=== PATIENT | male | born 1970 | race Caucasian/White ===

== ENCOUNTER 2018-04-13 09:31 | Emergency (ER) | payer MEDICARE ==
[~2018-04-13] VITALS: Ht 177.8 cm; Wt 75.3 kg
[~2018-04-13 09:31] MED LIST: CARI350T PO; DOXY100C2 PO; FENT1PAT19 TP; METH10TA2 PO; OMEP20CA5 PO; RIVA10TA PO
[2018-04-13] MEDS ORDERED: METHADONE 5 MG TABLET. PO STA (10:11)
--- NOTE | 2018-04-13 10:18 | PHYS DOC ---
Past History Past Medical History: DVT, Other Past Surgical History: Other Alcohol Use: None Drug Use: Methadone Adult General Chief Complaint Chief Complaint: BACK PAIN OR INJURY HPI HPI 48-year-old male presents with chronic back, hip, neck pain. The patient is on chronic pain medication including methadone and hydrocodone tens. Patient admits that he became flushed it with his latest pain management PA for decreasing his methadone too quickly. He was then discharged from the clinic. Patient states that he has called several physicians and no one can see him. He is attempting to get insurance at this time. He is out of his methadone for the last several days. He states the pain is quite severe but denies any new exacerbating symptoms or trauma. Review of Systems Review of Systems Constitutional: Denies fever or chills [] Eyes: Denies change in visual acuity, redness, or eye pain [] HENT: Denies nasal congestion or sore throat [] Respiratory: Denies cough or shortness of breath [] Cardiovascular: No additional information not addressed in HPI [] GI: Denies abdominal pain, nausea, vomiting, bloody stools or diarrhea [] : Denies dysuria or hematuria [] Musculoskeletal: Back pain, right hip pain, neck pain[] Integument: Denies rash or skin lesions [] Neurologic: Denies headache, focal weakness or sensory changes [] Endocrine: Denies polyuria or polydipsia [] All other systems were reviewed and found to be within normal limits, except as documented in this note. Allergies Allergies Allergies Coded Allergies Type Severity Reaction Last Updated Verified codeine Allergy Intermediate 10/13/14 Yes ketorolac Allergy Intermediate 10/13/14 Yes morphine Allergy Intermediate 10/13/14 Yes pentazocine Allergy Intermediate 10/13/14 Yes Physical Exam Physical Exam Constitutional: Well developed, well nourished, no acute distress, non-toxic appearance. [] HENT: Normocephalic, atraumatic, bilateral external ears normal, oropharynx moist, no oral exudates, nose normal. [] Eyes: PERRLA, EOMI, conjunctiva normal, no discharge. [] Neck: Normal range of motion, no tenderness, supple, no stridor. [] Cardiovascular:Heart rate regular rhythm, no murmur [] Lungs & Thorax: Bilateral breath sounds clear to auscultation [] Abdomen: Bowel sounds normal, soft, no tenderness, no masses, no pulsatile masses. [] Skin: Warm, dry, no erythema, no rash. [] Back: Cervical tenderness, lumbar tenderness, flattening of the lumbar lordosis. [] Extremities: No tenderness, no cyanosis, no clubbing, ROM intact, no edema. [] Neurologic: Alert and oriented X 3, normal motor function, normal sensory function, no focal deficits noted. [] Psychologic: Affect normal, judgement normal, mood normal. [] Current Patient Data Vital Signs Vital Signs Date Time Temp Pulse Resp B/P (MAP) Pulse Ox O2 Delivery O2 Flow Rate FiO2 04/13/18 09:31 97.9 113 22 100 Room Air EKG EKG [] Radiology/Procedures Radiology/Procedures [] Course & Med Decision Making Course & Med Decision Making Pertinent Labs and Imaging studies reviewed. (See chart for details) Review of the drug database shows the patient is regularly prescribed methadone and hydrocodone 10/325. Last filled prescription was March 26. This was a 14 day supply that time. This does show the patient will be out of this medication at this time. He did show me an empty bottle. I told him that I cannot write a prescription for these medications due to him being on chronic pain management from some other physician. I will give him one 10 mg tablet of methadone in the ER. He will have to find a new physician or return to his previous and work something out. [] Dragon Disclaimer Dragon Disclaimer This electronic medical record was generated, in whole or in part, using a voice recognition dictation system. Departure Departure: Referrals: PCP,NIEVES (PCP) JOHNNY PONCE DO Apr 13, 2018 10:17
[2018-04-13 10:37] VITALS: BP 138/92
== END 2018-04-13 11:05 | disposition home or self-care (01) ==
LOC: ER 09:31
DX: G89.29 Other chronic pain (principal); M54.5 Low back pain; M54.2 Cervicalgia; M25.551 Pain in right hip; M40.56 Lordosis, unspecified, lumbar region; Z86.718 Personal history of other venous thrombosis and embolism; Z88.5 Allergy status to narcotic agent; Z88.8 Allergy status to other drugs, medicaments and biological substances
CPT/HCPCS: 99284

== ENCOUNTER 2018-05-06 00:18 | Emergency (ER) | payer MEDICARE ==
[~2018-05-06] VITALS: Ht 177.8 cm; Wt 81.6 kg
--- NOTE | 2018-05-06 00:21 | ED.ADGEN ---
Past History Past Medical History: Arthritis, Depression, DVT, Other Past Surgical History: Lumbar Laminectomy, Other Alcohol Use: None Drug Use: Methadone Adult General Chief Complaint Chief Complaint ".. I got chronic back pain.. it down there where .. I had surgery... I seen Dr. Burgos.. and I am to see Dr. Louis at pain center...but I am out of meds... " HPI HPI Patient is a 48 year old male who presents with chronic back pain. Pt. see previous onf 04/13 for same complaint. Currently of Methadone. Pt. currently following with Dr. Burgos and has scheduled apt[facility]. Pt. denies any fever or chills. Patient denies any problems with defecation or urination. Patient is ambulatory. Patient pain is located paraspinal in area of previous lumbar surgery. Review of Systems Review of Systems Constitutional: Denies fever or chills [] Eyes: Denies change in visual acuity, redness, or eye pain [] HENT: Denies nasal congestion or sore throat [] Respiratory: Denies cough or shortness of breath [] Cardiovascular: No additional information not addressed in HPI [] GI: Denies abdominal pain, nausea, vomiting, bloody stools or diarrhea [] : Denies dysuria or hematuria [] Musculoskeletal: Complains of back pain Integument: Denies rash or skin lesions [] Neurologic: Denies headache, focal weakness or sensory changes [] Endocrine: Denies polyuria or polydipsia [] All other systems were reviewed and found to be within normal limits, except as documented in this note. Family History Family History Noncontributory Current Medications Current Medications Current Medications Medications (Trade) Dose Ordered Sig/Sonya Start Time Stop Time Status Last Admin Dose Admin Methadone HCl (Dolophine) 10 mg 1X ONCE 05/06/18 01:00 05/06/18 01:01 DC 05/06/18 01:09 10 MG Allergies Allergies Allergies Coded Allergies Type Severity Reaction Last Updated Verified codeine Allergy Intermediate 10/13/14 Yes ketorolac Allergy Intermediate 10/13/14 Yes morphine Allergy Intermediate 10/13/14 Yes pentazocine Allergy Intermediate 10/13/14 Yes Physical Exam Physical Exam Constitutional: Moderately acute distress, non-toxic appearance. [] HENT: Normocephalic, atraumatic, bilateral external ears normal, oropharynx moist, no oral exudates, nose normal. [] Eyes: PERRLA, EOMI, conjunctiva normal, no discharge. [] Neck: Normal range of motion, no tenderness, supple, no stridor. [] Cardiovascular:Heart rate regular rhythm, no murmur [] Lungs & Thorax: Bilateral breath sounds equal apex with scattered wheezes on auscultation [] Abdomen: Bowel sounds normal, soft, no tenderness, no masses, no pulsatile masses. [] Mild distention Skin: Warm, dry, no erythema, no rash. [] Back: Lumbar surgery scar and area of tenderness, no CVA tenderness. [] Extremities: No tenderness, no cyanosis, no clubbing, ROM intact, no edema. [] DTRs +2 patella. Is ambulatory Neurologic: Alert and oriented X 3, normal motor function, normal sensory function, no focal deficits noted. [] Psychologic: Affect anxious judgement normal, mood normal. [] Current Patient Data Vital Signs Vital Signs Date Time Temp Pulse Resp B/P (MAP) Pulse Ox O2 Delivery O2 Flow Rate FiO2 05/06/18 01:09 20 96 Room Air 05/06/18 00:26 96.6 100 EKG EKG [] Radiology/Procedures Radiology/Procedures [] Course & Med Decision Making Course & Med Decision Making Pertinent Labs and Imaging studies reviewed. (See chart for details). Patient encouraged to keep follow-up with Dr. Ulrich and Dr. Cueva or pain center. We given 1 dose of methadone tonight at 10 mg. [] Final Impression Final Impression 1. Chronic back pain[] Dragon Disclaimer Dragon Disclaimer This electronic medical record was generated, in whole or in part, using a voice recognition dictation system. SCOTT CERVANTES MD May 06, 2018 00:21
[2018-05-06 00:26] VITALS: BP 148/88
[2018-05-06] MEDS ORDERED: METHADONE 5 MG TABLET. PO ONE (01:00)
== END 2018-05-06 01:14 | disposition home or self-care (01) ==
LOC: ER 00:18
DX: G89.29 Other chronic pain (principal); M54.5 Low back pain; M19.90 Unspecified osteoarthritis, unspecified site; F32.9 Major depressive disorder, single episode, unspecified; Z86.718 Personal history of other venous thrombosis and embolism; Z98.890 Other specified postprocedural states; Z88.5 Allergy status to narcotic agent; Z88.8 Allergy status to other drugs, medicaments and biological substances
CPT/HCPCS: 99282

== ENCOUNTER → 2019-01-23 | Outpatient (CLI) | payer MEDICARE ==
[2019-01-23 09:36] VITALS: BP 137/84
== END | disposition home or self-care (01) ==
LOC: SURG 09:18
PROVIDERS: ATTEND Anesthesiology Pain Medicine
DX: M54.16 Radiculopathy, lumbar region (principal); G89.4 Chronic pain syndrome; I10 Essential (primary) hypertension; J44.9 Chronic obstructive pulmonary disease, unspecified; F98.8 Other specified behavioral and emotional disorders with onset usually occurring in childhood and adolescence; F17.200 Nicotine dependence, unspecified, uncomplicated; Z79.01 Long term (current) use of anticoagulants; Z79.899 Other long term (current) drug therapy; Z86.718 Personal history of other venous thrombosis and embolism; Z72.89 Other problems related to lifestyle
CPT/HCPCS: 99214

== ENCOUNTER 2019-07-17 14:26 | Emergency (ER) | payer MEDICARE ==
[~2019-07-17] VITALS: Ht 177.8 cm; Wt 80.0 kg
--- NOTE | 2019-07-17 14:55 | PHYS DOC ---
Past History Past Medical History: Arthritis, Depression, DVT, Other Additional Past Medical Histor: chronic back pain Past Surgical History: Lumbar Laminectomy, Other Alcohol Use: None Drug Use: None Adult General Chief Complaint Chief Complaint: LOWER EXT PAIN HPI HPI Patient is a 49-year-old male who presents to the emergency department for evaluation. He states for the past week, he has had increasing pain in his calves bilaterally, and he has a history of a DVT. He denies any increased swelling of his legs, or change in the appearance of the skin of his legs, which showed changes of chronic venous stasis. He has not had any fevers or chills and denies any chest pain or shortness of breath. There are no alleviating or exacerbating factors to his symptoms otherwise. The patient has a past history of chronic back pain, and had been seen pain management doctor for opiate treatment, but was released from the practice of his primary pain management physician about 3 months ago, and states she has not had any opiate medication since then. The patient states a few days ago he fell, and exacerbated his chronic back pain. Denies numbness incontinence or saddle anesthesia. Review of Systems Review of Systems Constitutional: Denies fever or chills [] Eyes: Denies change in visual acuity, redness, or eye pain [] HENT: Denies nasal congestion or sore throat [] Respiratory: Denies cough or shortness of breath [] Cardiovascular: The patient denies any shortness of breath, chest pain, palpitations, or orthopnea. the patient denies pleuritic pain[] GI: Denies abdominal pain, nausea, vomiting, bloody stools or diarrhea [] : Denies dysuria or hematuria [] Musculoskeletal: Denies neck pain or joint pain [] Integument: Denies rash or skin lesions [] Neurologic: Denies headache, focal weakness or sensory changes [] Endocrine: Denies polyuria or polydipsia [] All other systems were reviewed and found to be within normal limits, except as documented in this note. Allergies Allergies Allergies Coded Allergies Type Severity Reaction Last Updated Verified codeine Allergy Intermediate 01/23/19 Yes ketorolac Allergy Intermediate 01/23/19 Yes morphine Allergy Intermediate 01/23/19 Yes pentazocine Allergy Intermediate 01/23/19 Yes Physical Exam Physical Exam PHYSICAL EXAM: CONSTITUTIONAL: Well developed, well nourished HEAD: normocephalic, atraumatic EENT: PERRL, EOMI. Conjunctivae normal color, sclerae non-icteric; moist mucous membranes. NECK: Supple, non-tender; no meningismus. LUNGS: Lungs CTA, breathing even and unlabored. Normal air movement. HEART: Regular rate and rhythm, no murmur CHEST: No deformity; non-tender ABDOMEN: The abdomen is soft, and non-tender, no masses or bruits. EXTREM: Normal ROM; no deformity, there is tenderness to palpation to the Is bilaterally, right greater than left, with a palpable cord just distal to the knee, extending chronically. There is some mild surrounding erythema. There are skin changes of venous stasis bilaterally, which are stable per the patient. Distal pulses are strong bilaterally. The remainder the extremities are unremarkable. SKIN: No rash; no diaphoresis NEURO: Alert; normal speech and cognition; CN's grossly intact; strength grossly intact without focal deficit. BACK: No CVA TTP. There is mild diffuse tenderness to palpation of the lumbar spine without any focal bony tenderness to palpation. Current Patient Data Lab Results Laboratory Tests Test 07/17/19 14:54 07/17/19 15:10 White Blood Count 8.8 x10^3/uL Red Blood Count 5.48 x10^6/uL Hemoglobin 16.3 g/dL Hematocrit 49.8 % Mean Corpuscular Volume 91 fL Mean Corpuscular Hemoglobin 30 pg Mean Corpuscular Hemoglobin Concent 33 g/dL Red Cell Distribution Width 14.2 % Platelet Count 336 x10^3/uL Neutrophils (%) (Auto) 62 % Lymphocytes (%) (Auto) 24 % Monocytes (%) (Auto) 11 % Eosinophils (%) (Auto) 3 % Basophils (%) (Auto) 1 % Neutrophils # (Auto) 5.5 x10^3uL Lymphocytes # (Auto) 2.1 x10^3/uL Monocytes # (Auto) 1.0 x10^3/uL Eosinophils # (Auto) 0.2 x10^3/uL Basophils # (Auto) 0.0 x10^3/uL Sodium Level 142 mmol/L Potassium Level 3.7 mmol/L Chloride Level 102 mmol/L Carbon Dioxide Level 28 mmol/L Anion Gap 12 Blood Urea Nitrogen 6 mg/dL Creatinine 1.2 mg/dL Estimated GFR (Cockcroft-Gault) 63.8 Glucose Level 71 mg/dL Calcium Level 9.4 mg/dL Urine Opiates Screen Neg Urine Methadone Screen Neg Urine Barbiturates Neg Urine Phencyclidine Screen Neg Urine Amphetamine/Methamphetamine Neg Urine Benzodiazepines Screen Neg Urine Cocaine Screen Neg Urine Cannabinoids Screen Neg Urine Ethyl Alcohol Neg EKG EKG [] Radiology/Procedures Radiology/Procedures [] Impressions: PROCEDURE: VENOUS LOWER EXT BILATERAL INDICATION: History of deep vein thrombosis with leg pain COMPARISON: October 11, 2014 TECHNIQUE: Grayscale, color and doppler ultrasound images were obtained of the bilateral lower extremity venous vasculature. RIGHT: Common femoral vein is patent. Partial thrombus within the superficial femoral, popliteal veins as well as extension into the calf veins including peroneal and posterior tibial. Suspected thrombus within lesser saphenous vein. Additional superficial thrombus within varicose vein. LEFT: No thrombus identified in the common femoral vein, femoral vein, popliteal vein or visualized calf veins. Thrombus is seen within lesser saphenous vein IMPRESSION: * Deep vein thrombosis is identified on the right. * Thrombus within the lesser saphenous vein on the left. PROCEDURE: LUMBAR SPINE 2-3V Exam: Lumbar spine 3 views INDICATION: Fall, pain TECHNIQUE: Frontal and lateral views lumbar spine with spot magnification view of the lumbosacral junction. Comparisons: None FINDINGS: There is reversal of the normal lumbar lordosis. Compression deformity involving the superior endplate of L1 with less than 25 percent height loss. Mild wedging of the L3 vertebral body is also noted. Posterior lumbar fusion hardware at L4-L5 with bilateral transpedicular screws and interconnecting vertical stabilization rods. Degenerative disc disease greatest at L3-L4. Vascular stent noted overlying the expected area of the left iliac vessels. Likely right renal calculi at the right renal kami measuring 1.9 cm. IMPRESSION: 1. Compression deformity involving the superior endplate of L1 with approximately 25 percent height loss. This is age indeterminate correlate with point tenderness. 2. Mild wedging of the L3 vertebral body which appears to be chronic in appearance with adjacent sclerosis Course & Med Decision Making Course & Med Decision Making Pertinent Labs and Imaging studies reviewed. (See chart for details) 5:00 PM: The patient's condition remains stable at this time. He continues to deny any chest pain or shortness of breath. His heart rate is in the 90s. I discussed test results in detail, the need for close PCP follow-up, use of warm compresses, antibiotics, analgesic medication, the need for reestablishing care with his pain management doctor, and return precautions in detail. 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 He has not had any opiate pain prescription since March. Dragon Disclaimer Estephanie Disclaimer This electronic medical record was generated, in whole or in part, using a voice recognition dictation system. Departure Departure: Impression: Primary Impression: DVT (deep venous thrombosis) Additional Impressions: Superficial vein thrombosis Compression fracture Chronic pain syndrome Disposition: HOME, SELF-CARE Condition: STABLE Referrals: DIGNA CLAYTON MD (PCP) Patient Instructions: Back, Compression Fracture, Chronic Back Pain, Deep Vein Thrombosis, Phlebitis Additional Instructions: Warm compresses to the affected area on your leg may help improve your symptoms. Return to medical care for any new or worsening symptoms, development of increasing pain in your legs, swelling in your legs, difficulty breathing, or any other new, or concerning symptoms. Scripts Cephalexin (KEFLEX) 500 Mg Capsule 500 MG PO QID for - for 7 Days, #28 CAP Prov: YAIMA TRAN MD 07/17/19 Rivaroxaban (XARELTO) 20 Mg Tablet 1 TAB PO DAILY for DVT for 30 Days, #30 TAB 0 Refills with food- Begin taking after completing course of 15 mg BID for 3 weeks Prov: YAIMA TRAN MD 07/17/19 Rivaroxaban (XARELTO) 15 Mg Tablet 1 TAB PO BID for - for 21 Days, #42 TAB 0 Refills Prov: YAIMA TRAN MD 07/17/19 Oxycodone HCl/Acetaminophen (Percocet 5-325 mg Tablet) 1 Each Tablet 1 TAB PO Q6HRS PRN for PAIN MDD 3 Tablet(s), #20 TAB 0 Refills Prov: YAIMA TRAN MD 07/17/19 Problem Qualifiers YAIMA TRAN MD Jul 17, 2019 14:55
[2019-07-17 15:14] LABS: BASO % 1 % (0-3); EOS # 0.2 x10^3/uL (0.0-0.7); EOS % 3 % (0-3); HEMATOCRIT 49.8 % (39.0-53.0); HEMOGLOBIN 16.3 g/dL (13.0-17.5); LYMPH # 2.1 x10^3/uL (1.0-4.8); LYMPH % 24 % (24-48); MEAN CORPUSCULAR HEMOGLOBIN 30 pg (25-35); MEAN CORPUSCULAR HGB CONC 33 g/dL (31-37); MEAN CORPUSCULAR VOLUME 91 fL (79-100); MONO % 11 % (0-9); NEUT # 5.5 x10^3uL (1.8-7.7); NEUT % 62 % (31-73); PLATELET COUNT 336 x10^3/uL (140-400); RED BLOOD COUNT 5.48 x10^6/uL (4.30-5.70); RED CELL DISTRIBUTION WIDTH 14.2 % (11.5-14.5); WHITE BLOOD COUNT 8.8 x10^3/uL (4.0-11.0)
[2019-07-17 15:17] LABS: CALCIUM 9.4 mg/dL (8.5-10.1); CREATININE 1.2 mg/dL (0.7-1.3); GFR 63.8; POTASSIUM 3.7 mmol/L (3.5-5.1)
[2019-07-17 15:52] LABS: AMPHETAMINE/METHAMPHETAMINE NEG (NEG); BARBITURATES NEG (NEG); BENZODIAZEPINES NEG (NEG); CANNABINOIDS NEG (NEG); COCAINE NEG (NEG); METHADONE NEG (NEG); OPIATES NEG (NEG); PHENCYCLIDINE NEG (NEG)
--- NOTE | 2019-07-17 16:39 | RAD ---
INDICATION: History of deep vein thrombosis with leg pain COMPARISON: October 11, 2014 TECHNIQUE: Grayscale, color and doppler ultrasound images were obtained of the bilateral lower extremity venous vasculature. RIGHT: Common femoral vein is patent. Partial thrombus within the superficial femoral, popliteal veins as well as extension into the calf veins including peroneal and posterior tibial. Suspected thrombus within lesser saphenous vein. Additional superficial thrombus within varicose vein. LEFT: No thrombus identified in the common femoral vein, femoral vein, popliteal vein or visualized calf veins. Thrombus is seen within lesser saphenous vein IMPRESSION: * Deep vein thrombosis is identified on the right. * Thrombus within the lesser saphenous vein on the left. Electronically signed by: Josse Marquis MD (07/17/2019 4:36 PM) [facility] [place]
--- NOTE | 2019-07-17 16:44 | RAD ---
Exam: Lumbar spine 3 views INDICATION: Fall, pain TECHNIQUE: Frontal and lateral views lumbar spine with spot magnification view of the lumbosacral junction. Comparisons: None FINDINGS: There is reversal of the normal lumbar lordosis. Compression deformity involving the superior endplate of L1 with less than 25 percent height loss. Mild wedging of the L3 vertebral body is also noted. Posterior lumbar fusion hardware at L4-L5 with bilateral transpedicular screws and interconnecting vertical stabilization rods. Degenerative disc disease greatest at L3-L4. Vascular stent noted overlying the expected area of the left iliac vessels. Likely right renal calculi at the right renal kami measuring 1.9 cm. IMPRESSION: 1. Compression deformity involving the superior endplate of L1 with approximately 25 percent height loss. This is age indeterminate correlate with point tenderness. 2. Mild wedging of the L3 vertebral body which appears to be chronic in appearance with adjacent sclerosis Electronically signed by: Anne Marie Sneed MD (07/17/2019 4:41 PM) [id number]
[2019-07-17] MEDS ORDERED: RIVAROXABAN 15 MG TABLET. PO SCH (17:00)
[2019-07-17] MEDS ORDERED: OXYC-325 PO (17:03)
[2019-07-17] MEDS ORDERED: RIVA20TA2 PO (17:03)
[2019-07-17] MEDS ORDERED: RIVA15TA PO (17:03)
[2019-07-17] MEDS ORDERED: CEPH-264 PO (17:03)
[2019-07-17 17:15] VITALS: BP 131/89
== END 2019-07-17 17:18 | disposition home or self-care (01) ==
LOC: ER 14:26
DX: S32.010A Wedge compression fracture of first lumbar vertebra, initial encounter for closed fracture (principal); I82.4Z3 Acute embolism and thrombosis of unspecified deep veins of distal lower extremity, bilateral; I82.813 Embolism and thrombosis of superficial veins of lower extremities, bilateral; G89.4 Chronic pain syndrome; M19.90 Unspecified osteoarthritis, unspecified site; Z86.718 Personal history of other venous thrombosis and embolism; Z98.890 Other specified postprocedural states; Z88.5 Allergy status to narcotic agent; Z88.6 Allergy status to analgesic agent; Z88.8 Allergy status to other drugs, medicaments and biological substances; W18.39XA Other fall on same level, initial encounter; Y93.89 Activity, other specified; Y92.89 Other specified places as the place of occurrence of the external cause; Y99.8 Other external cause status
CPT/HCPCS: 36415; 72100; 80048; 80307; 85025; 93970; 99285

== ENCOUNTER → 2020-01-30 | Outpatient (CLI) | payer MEDICARE ==
[~2020-01-30] MED LIST changes: +CEPH-264 PO; +OXYC-325 PO; +RIVA15TA PO; +RIVA20TA2 PO
== END | disposition home or self-care (01) ==
LOC: LAB 13:05
PROVIDERS: ATTEND Urology
DX: Z20.828 Contact with and (suspected) exposure to other viral communicable diseases (principal)
CPT/HCPCS: U0003-CS

== ENCOUNTER → 2020-02-19 | Outpatient (CLI) | payer MEDICARE | END | disposition home or self-care (01) | LOC: LAB 08:33 | PROVIDERS: ATTEND Urology | DX: Z01.812 Encounter for preprocedural laboratory examination (principal); N20.0 Calculus of kidney; Z20.828 Contact with and (suspected) exposure to other viral communicable diseases | CPT/HCPCS: U0003-CS ==

== ENCOUNTER 2021-04-23 15:33 | Emergency (ER) | payer MEDICARE ==
[~2021-04-23] VITALS: Ht 177.8 cm; Wt 80.0 kg
[~2021-04-23 15:33] MED LIST changes: -DOXY100C2 PO; +DOXY100C3 PO; +METH-570 PO; -METH10TA2 PO
[2021-04-23] MEDS ORDERED: IOHEXOL 350 MG/ML 100 ML VIAL. IV ONE (16:00)
[2021-04-23 16:34] LABS: BASO % 0 % (0-3); EOS # 0.2 x10^3/uL (0.0-0.7); EOS % 2 % (0-3); HEMATOCRIT 40.4 % (39.0-53.0); HEMOGLOBIN 13.5 g/dL (13.0-17.5); LYMPH # 1.4 x10^3/uL (1.0-4.8); LYMPH % 16 % (24-48); MEAN CORPUSCULAR HEMOGLOBIN 31 pg (25-35); MEAN CORPUSCULAR HGB CONC 33 g/dL (31-37); MEAN CORPUSCULAR VOLUME 92 fL (79-100); MONO % 11 % (0-9); NEUT # 6.3 x10^3uL (1.8-7.7); NEUT % 71 % (31-73); PLATELET COUNT 229 x10^3/uL (140-400); RED BLOOD COUNT 4.41 x10^6/uL (4.30-5.70); RED CELL DISTRIBUTION WIDTH 13.8 % (11.5-14.5); WHITE BLOOD COUNT 8.9 x10^3/uL (4.0-11.0)
--- NOTE | 2021-04-23 16:34 | RAD ---
Examination: CT angiography chest with IV contrast HISTORY: History of shortness of breath, tachycardia COMPARISON: None: Axial CT and radiographic images of chest were performed with IV contrast. Cholecys tectomy is visualized. Exposure: One or more of the following individualized dose reduction techniques were utilized for thi s examination: 1. Automated exposure control 2. Adjustment of the mA and/or kV according to patient size 3. Use of iterative reconstruction technique FINDINGS: The central airways are patent. The caliber of the aorta grossly appears unremarkable. There is filli ng defect identified in the left upper lobe, left lingular and left lower lobe pulmonary arterial bra nches likely pulmonary emboli. Cystic structures identified in the right upper lobe, right lower lobe of the lung could be secondary to air trapping or sequela of prior infection. Mild degree attenuation noted in the liver likely hepatic steatosis. The spleen, adrenals grossly carlos ears unremarkable. There is a cystic structure identified in the upper pole of the left kidney measuring 1.8 cm likely 3 8 Hounsfield units. There is a 1.1 cm calculus right kidney. Moderate degenerative changes thoracic s pine. IMPRESSION: 1. Filling defects identified in the left upper lobe, left lingular and left lower lobe pulmonary ar terial branches likely pulmonary emboli. 2. Cystic structures identified in the right upper lobe, right lower lobe of the lung could be secon debby to air trapping or sequela of prior infection. 3. A 1.1 cm calculus right kidney. 4. 1.8 cm cystic structure identified in the upper pole of the left kidney likely cystic lesion. Fol low-up nonemergent ultrasound kidneys can be considered. Electronically signed by: Dalton Sethi MD (04/23/2021 4:32 PM) [id number]
[2021-04-23 16:53] LABS: CALCIUM 8.4 mg/dL (8.5-10.1); CREATININE 0.8 mg/dL (0.7-1.3); GFR 101.1; POTASSIUM 3.8 mmol/L (3.5-5.1)
--- NOTE | 2021-04-23 16:54 | EKG ---
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
[2021-04-23 16:59] LABS: ALBUMIN 3.5 g/dL (3.4-5.0); ALBUMIN/GLOBULIN RATIO 0.9 (1.0-1.7); TOTAL BILIRUBIN 0.5 mg/dL (0.2-1.0); TOTAL PROTEIN 7.4 g/dL (6.4-8.2)
[2021-04-23] MEDS ORDERED: ONDANSETRON PF 4 MG/2 ML VIAL. IVP ONE (17:00)
[2021-04-23] MEDS ORDERED: MORPHINE SULFATE 4 MG/ML DISP.SYRIN. IV ONE (17:00)
--- NOTE | 2021-04-23 17:06 | PHYS DOC ---
Past History Past Medical History: Arthritis, Depression, DVT, Other Additional Past Medical Histor: chronic back pain (ELIZABETH DEJESUS APRN) Past Surgical History: Lumbar Laminectomy, Other Additional Past Surgical Histo: DISCECTOMY, RIGHT KNEE (ELIZABETH DEJESUS APRN) Alcohol Use: None Drug Use: None (ELIZABETH DEJESUS APRN) General Adult EDM: Chief Complaint: LOWER EXT PAIN HPI: HPI: Patient is a 51-year-old male presents with right leg redness and swelling for 1 week. Patient has history of DVT and is currently on Eliquis. Patient is also reporting shortness of breath and trouble with ambulation. Denies history of PE. Patient is rating pain 9/10. Pain does not change with ambulation or sitting down. Denies taking anything for pain prior to arrival. History of arthritis, depression. (ELIZABETH DEJESUS APRN) Review of Systems: Review of Systems: ROS At least 10 ROS systems have been reviewed and are negative except as documented in the HPI. General: Negative except as outlined in HPI above. Skin: Negative except as outlined in HPI above. HEENT: Negative except as outlined in HPI above. Neck: Negative except as outlined in HPI above. Respiratory: Negative except as outlined in HPI above.. Cardiovascular: Negative except as outlined in HPI above. Abdomen: Negative except as outlined in HPI above. : Negative except as outlined in HPI above. Back/MSK: Negative except as outlined in HPI above. Neuro: Negative except as outlined in HPI above. Psych: Negative except as outlined in HPI above. (ELIZABETH DEJESUS APRN) Current Medications: Current Meds: Current Medications Medications (Trade) Dose Ordered Sig/Sonya Start Time Stop Time Status Last Admin Dose Admin Fentanyl Citrate (Fentanyl 2ml Vial) 50 mcg 1X ONCE 04/23/21 17:00 04/23/21 17:01 Iohexol (Omnipaque 350 Mg/ml) 100 ml 1X ONCE 04/23/21 16:00 04/23/21 16:02 DC 04/23/21 16:11 100 ML Morphine Sulfate (Morphine 4mg Syringe) 4 mg 1X ONCE 04/23/21 17:00 04/23/21 17:01 Cancel Ondansetron HCl (Zofran) 4 mg 1X ONCE 04/23/21 17:00 04/23/21 17:01 (DEJESUS,ELIZABETH TRAIN OPERATIONS MANAGER) Allergies: Allergies: Allergies Coded Allergies Type Severity Reaction Last Updated Verified codeine Allergy Intermediate 01/23/19 Yes ketorolac Allergy Intermediate 01/23/19 Yes morphine Allergy Intermediate 01/23/19 Yes pentazocine Allergy Intermediate 01/23/19 Yes (ELIZABETH DEJESUS TRAIN OPERATIONS MANAGER) Physical Exam: PE: Constitutional: Well developed, well nourished, no acute distress, non-toxic appearance. [] HENT: Normocephalic, atraumatic, bilateral external ears normal, oropharynx moist, no oral exudates, nose normal. [] Eyes: PERRLA, EOMI, conjunctiva normal, no discharge. [] Neck: Normal range of motion, no tenderness, supple, no stridor. [] Cardiovascular:Heart rate regular rhythm, no murmur [] Lungs & Thorax: Bilateral breath sounds clear to auscultation [] Abdomen: Bowel sounds normal, soft, no tenderness, no masses, no pulsatile masses. [] Skin: Warm, dry, no erythema, no rash. [] Back: No tenderness, no CVA tenderness. [] Extremities: Right leg tenderness, swelling, redness, warmth. Range of motion intact but with pain. 2+ pitting edema, pedal pulses intact Neurologic: Alert and oriented X 3, normal motor function, normal sensory funct ion, no focal deficits noted. [] Psychologic: Affect normal, judgement normal, mood normal. [] (ELIZABETH DEJESUS TRAIN OPERATIONS MANAGER) Current Patient Data: Labs: Laboratory Tests Test 04/23/21 16:02 White Blood Count 8.9 x10^3/uL (4.0-11.0) Red Blood Count 4.41 x10^6/uL (4.30-5.70) Hemoglobin 13.5 g/dL (13.0-17.5) Hematocrit 40.4 % (39.0-53.0) Mean Corpuscular Volume 92 fL (79-100) Mean Corpuscular Hemoglobin 31 pg (25-35) Mean Corpuscular Hemoglobin Concent 33 g/dL (31-37) Red Cell Distribution Width 13.8 % (11.5-14.5) Platelet Count 229 x10^3/uL (140-400) Neutrophils (%) (Auto) 71 % (31-73) Lymphocytes (%) (Auto) 16 % (24-48) L Monocytes (%) (Auto) 11 % (0-9) H Eosinophils (%) (Auto) 2 % (0-3) Basophils (%) (Auto) 0 % (0-3) Neutrophils # (Auto) 6.3 x10^3uL (1.8-7.7) Lymphocytes # (Auto) 1.4 x10^3/uL (1.0-4.8) Monocytes # (Auto) 1.0 x10^3/uL (0.0-1.1) Eosinophils # (Auto) 0.2 x10^3/uL (0.0-0.7) Basophils # (Auto) 0.0 x10^3/uL (0.0-0.2) Sodium Level 140 mmol/L (136-145) Potassium Level 3.8 mmol/L (3.5-5.1) Chloride Level 102 mmol/L (98-107) Carbon Dioxide Level 32 mmol/L (21-32) Anion Gap 6 (6-14) Blood Urea Nitrogen 7 mg/dL (8-26) L Creatinine 0.8 mg/dL (0.7-1.3) Estimated GFR (Cockcroft-Gault) 101.1 BUN/Creatinine Ratio 9 (6-20) Glucose Level 88 mg/dL (70-99) Calcium Level 8.4 mg/dL (8.5-10.1) L Total Bilirubin Pending Aspartate Amino Transferase (AST) Pending Alanine Aminotransferase (ALT) Pending Alkaline Phosphatase Pending Total Protein Pending Albumin Pending Albumin/Globulin Ratio Pending Vital Signs: Vital Signs Date Time Temp Pulse Resp B/P (MAP) Pulse Ox O2 Delivery O2 Flow Rate FiO2 04/23/21 15:47 98.7 110 26 143/106 (118) 93 Room Air (ELIZABETH DEJESUS APRN) EKG: EKG: [] (ELIZABETH DEJESUS APRN) Radiology/Procedures: Radiology/Procedures: []Examination: CT angiography chest with IV contrast HISTORY: History of shortness of breath, tachycardia COMPARISON: None: Axial CT and radiographic images of chest were performed with IV contrast. Cholecystectomy is visualized. Exposure: One or more of the following individualized dose reduction techniques were utilized for this examination: 1. Automated exposure control 2. Adjustment of the mA and/or kV according to patient size 3. Use of iterative reconstruction technique FINDINGS: The central airways are patent. The caliber of the aorta grossly appears unremarkable. There is filling defect identified in the left upper lobe, left lingular and left lower lobe pulmonary arterial branches likely pulmonary emboli. Cystic structures identified in the right upper lobe, right lower lobe of the lung could be secondary to air trapping or sequela of prior infection. Mild degree attenuation noted in the liver likely hepatic steatosis. The spleen, adrenals grossly appears unremarkable. There is a cystic structure identified in the upper pole of the left kidney measuring 1.8 cm likely 38 Hounsfield units. There is a 1.1 cm calculus right kidney. Moderate degenerative changes thoracic spine. IMPRESSION: 1. Filling defects identified in the left upper lobe, left lingular and left lower lobe pulmonary arterial branches likely pulmonary emboli. 2. Cystic structures identified in the right upper lobe, right lower lobe of the lung could be secondary to air trapping or sequela of prior infection. 3. A 1.1 cm calculus right kidney. 4. 1.8 cm cystic structure identified in the upper pole of the left kidney like ly cystic lesion. Follow-up nonemergent ultrasound kidneys can be considered. Electronically signed by: Dalton Sethi MD (04/23/2021 4:32 PM) [id number] Exam: Right lower extremity venous duplex study INDICATION: Leg swelling TECHNIQUE: Using a combination of real-time ultrasound imaging and color-flow and pulse Doppler imaging techniques along with graded compression and augmentation, duplex evaluation of the deep venous systems of rightlower extremity was performed. Multiple images were obtained. Findings: Nonocclusive thrombus noted at the right common femoral vein, superficial femoral vein, popliteal vein and posterior tibial vein. Greater saphenous vein is completely occluded from the proximal thigh to the ankle. IMPRESSION: Extensive thrombus in the right lower extremity as described above.. Electronically signed by: Anne Marie Sneed MD (04/23/2021 6:20 PM) LUCIANOMARIBEL (ELIZABETH DEJESUS APRN) Heart Score: C/O Chest Pain: No Risk Factors: Risk Factors: DM, Current or recent (<one month) smoker, HTN, HLP, family history of CAD, obesity. Risk Scores: Score 0 - 3: 2.5% MACE over next 6 weeks - Discharge Home Score 4 - 6: 20.3% MACE over next 6 weeks - Admit for Clinical Observation Score 7 - 10: 72.7% MACE over next 6 weeks - Early Invasive Strategies (ELIZABETH DEJESUS APRN) Course & Med Decision Making: Course & Med Decision Making Pertinent Labs and Imaging studies reviewed. (See chart for details) [] 51-year-old male who presents with right leg redness and swelling for 1 week. +2 pitting edema, warm , red and painful. Patient has history of DVTs and is currently on Eliquis. Patient's also reporting shortness of breath. Heart rate was elevated at 110. Patient denies history of PE. CTA ordered rule out PE. Patient given fentanyl and Zofran. CTA positive for PE. Ultrasound of right lower extremity shows nonocclusive thrombus noted at the right common femoral vein, superficial femoral vein, popliteal vein and posterior tibial vein.Greater saphenous vein is completely occluded from the proximal thigh to the ankle. All labs unremarkable. Patient started on heparin for DVT and PE. Vancomycin started for cellulitis. Patient given second dose of fentanyl for pain. Discussed with patient he would need to be admitted to the hospital for further management. Patient agrees with admission plan. Spoke with at [facility] who will be accepting patient to med surg for PE, and Cellulitis of right lower extremity. Accepting physician is . (ELIZABETH DEJESUS APRN) Course & Med Decision Making I was the Attending physician on the above date of service of this patient. I reviewed case with WOOD SAWYER. Patient on Eliquis and continues to fail with new clot burden in the lungs and DVT. Hemodynamically stable without any concern for RV strain. Decision made to increase to treatment dose of Eliquis, 10 mg twice daily with close outpatient follow-up for further coagulopathy work-up if not done previously, echocardiogram etc. Explicit return precautions discussed prior to departure Electronically signed, Emigdio Bolanos DO (EMIGDIO BOLANOS DO) Estephanie Disclaimer: Estephanie Disclaimer: This electronic medical record was generated, in whole or in part, using a voice recognition dictation system. (ELIZABETH DEJESUS APRN) Departure Departure: Impression: Primary Impression: DVT (deep venous thrombosis) Qualified Codes: I82.401 - Acute embolism and thrombosis of unspecified deep veins of right lower extremity Additional Impression: Pulmonary embolism Qualified Codes: I26.99 - Other pulmonary embolism without acute cor pulmonale Disposition: 02 SHORT TERM HOSPITAL Condition: STABLE Referrals: DIGNA CLAYTON MD (PCP) ELIZABETH DEJESUS APRN Apr 23, 2021 17:06 EMIGDIO BOLANOS DO Apr 24, 2021 06:51
--- NOTE | 2021-04-23 18:23 | RAD ---
Exam: Right lower extremity venous duplex study INDICATION: Leg swelling TECHNIQUE: Using a combination of real-time ultrasound imaging and color-flow and pulse Doppler imagi ng techniques along with graded compression and augmentation, duplex evaluation of the deep venous sy stems of rightlower extremity was performed. Multiple images were obtained. Findings: Nonocclusive thrombus noted at the right common femoral vein, superficial femoral vein, popliteal vei n and posterior tibial vein. Greater saphenous vein is completely occluded from the proximal thigh to the ankle. IMPRESSION: Extensive thrombus in the right lower extremity as described above.. Electronically signed by: Anne Marie Sneed MD (04/23/2021 6:20 PM) [id number]
[2021-04-23] MEDS ORDERED: HEPARIN for IV BOLUS 10,000 UNIT/10 ML VIAL. IV ONE (19:00)
[2021-04-23] MEDS ORDERED: HEPARIN 25,000UTS/250ML PREMIX 250 ML IV PRN (19:00)
[2021-04-23] MEDS ORDERED: VANCOMYCIN 2 GM in IV NORMAL SALINE 500ML 500 ML IV ONE (19:00)
[2021-04-23] MEDS ORDERED: HEPARIN for IV BOLUS 10,000 UNIT/10 ML VIAL. IV PRN ×2 (19:00)
[2021-04-23] MEDS ORDERED: IV NORMAL SALINE 500ML 500 ML ONE (19:39)
[2021-04-23] MEDS ORDERED: VANCOMYCIN 1 GM VIAL. ONE (19:39)
[2021-04-23 20:42] VITALS: BP 131/87
== END 2021-04-23 20:48 | disposition short-term general hospital (02) ==
LOC: ER 15:38
DX: I82.401 Acute embolism and thrombosis of unspecified deep veins of right lower extremity (principal); I26.99 Other pulmonary embolism without acute cor pulmonale; M19.90 Unspecified osteoarthritis, unspecified site; F32.9 Major depressive disorder, single episode, unspecified; G89.29 Other chronic pain; Z86.718 Personal history of other venous thrombosis and embolism; Z88.5 Allergy status to narcotic agent; Z88.8 Allergy status to other drugs, medicaments and biological substances
CPT/HCPCS: 36415; 71275; 80053; 83880; 85025; 85610; 85730; 93005; 93971; 96365; 96368; 96374; 96375; 96376; 99285; J1644; J2405; J3010; J3370; J7040; Q9967